=== PATIENT | male | born 1945 | race Caucasian/White ===

== ENCOUNTER → 2016-09-16 | Outpatient (CLI) | payer MEDICARE ==
[~2016-09-16] MED LIST: ACET500T76 PO; ALBU6.7H PO; ASCO250T2 PO; ASPI-515 PO; ATOR10TA9 PO; BISO10TA10 PO; CALC-141 PO; CARV6.252 PO; CEFD300C2 PO; DIAZ5TAB PO; DIGO125T PO; DIPH25CA61 PO; DOXY100T PO; ENAL5TAB PO; ENAL5TAB34 PO; FOLI-17 PO; FURO40TA6 PO; GABA100C8 PO; IBAN150T PO; LORA-446 PO; MAGN400T36 PO; MAGNESIUM PO; MULT-6 PO; MULTIVITAMIN PO; MYCO500T3 PO; NORT10CA PO; RANI150C PO; SIRO0.5T3 PO; SIRO1TAB PO; TACR0.5C4 PO; TRIA10.8 INH; WARF2TAB PO-COUM; WARF5TAB7 PO; WARF7.5T6 PO
[2016-09-16 12:47] LABS: HEMOGLOBIN 14.4 g/dL (13.7-18.0)
[2016-09-16 12:58] LABS: BLOOD UREA NITROGEN 32 mg/dL (7-18)
[2016-09-16 13:11] LABS: ASPARTATE AMINO TRANSFERASE 24 U/L (15-37)
== END | disposition home or self-care (01) ==
LOC: CFH 10:47
PROVIDERS: ATTEND Nurse Practitioner Family
DX: J18.9 Pneumonia, unspecified organism (principal); Z94.1 Heart transplant status; Z98.890 Other specified postprocedural states
CPT/HCPCS: 36415; 71020; 80053; 80162; 80195; 80197; 83880; 85025; 85610

== ENCOUNTER → 2016-10-10 | Outpatient (CLI) | payer MEDICARE ==
[~2016-10-10] MED LIST changes: -CEFD300C2 PO; +CEFD300C37 PO
== END | disposition home or self-care (01) ==
LOC: CFH 11:58
PROVIDERS: ATTEND Nurse Practitioner Family
DX: I80.01 Phlebitis and thrombophlebitis of superficial vessels of right lower extremity (principal); Z94.1 Heart transplant status
CPT/HCPCS: 36415; 85610

== ENCOUNTER → 2016-11-05 | Outpatient (CLI) | payer MEDICARE ==
[2016-11-05 13:04] LABS: BLOOD UREA NITROGEN 24 mg/dL (7-18)
== END | disposition home or self-care (01) ==
LOC: LAB 09:44
PROVIDERS: ATTEND Nurse Practitioner Family
DX: Z48.21 Encounter for aftercare following heart transplant (principal); I80.01 Phlebitis and thrombophlebitis of superficial vessels of right lower extremity; Z94.1 Heart transplant status
CPT/HCPCS: 36415; 80048; 80197; 85610

== ENCOUNTER → 2016-11-29 | Outpatient (CLI) | payer MEDICARE ==
[~2016-11-29] MED LIST changes: +ACET500T71 PO; -ACET500T76 PO; +GABA-826 PO; -GABA100C8 PO; +WARF7.5T PO
== END | disposition home or self-care (01) ==
LOC: LAB 11:21
PROVIDERS: ATTEND Nurse Practitioner Family
DX: I80.01 Phlebitis and thrombophlebitis of superficial vessels of right lower extremity (principal); Z94.1 Heart transplant status
CPT/HCPCS: 36415; 85610

== ENCOUNTER → 2016-12-11 | Outpatient (CLI) | payer MEDICARE | END | disposition home or self-care (01) | LOC: LAB 10:56 | PROVIDERS: ATTEND Nurse Practitioner Family | DX: I80.01 Phlebitis and thrombophlebitis of superficial vessels of right lower extremity (principal); Z94.1 Heart transplant status | CPT/HCPCS: 36415; 85610 ==

== ENCOUNTER → 2016-12-25 | Outpatient (CLI) | payer MEDICARE | END | disposition home or self-care (01) | LOC: CFH 12:15 | PROVIDERS: ATTEND Nurse Practitioner Family | DX: I80.01 Phlebitis and thrombophlebitis of superficial vessels of right lower extremity (principal); Z94.1 Heart transplant status | CPT/HCPCS: 36415; 85610 ==

== ENCOUNTER → 2017-01-09 | Outpatient (CLI) | payer MEDICARE | END | disposition home or self-care (01) | LOC: CFH 09:46 | PROVIDERS: ATTEND Nurse Practitioner Family | DX: I80.01 Phlebitis and thrombophlebitis of superficial vessels of right lower extremity (principal); Z94.1 Heart transplant status | CPT/HCPCS: 36415; 85610 ==

== ENCOUNTER → 2017-02-03 | Outpatient (CLI) | payer MEDICARE ==
[~2017-02-03] MED LIST changes: -ENAL5TAB34 PO; +ENAL5TAB70 PO
== END | disposition home or self-care (01) ==
LOC: CFH 10:14
PROVIDERS: ATTEND Nurse Practitioner Family
DX: I82.409 Acute embolism and thrombosis of unspecified deep veins of unspecified lower extremity (principal)
CPT/HCPCS: 36415; 85610

== ENCOUNTER → 2017-02-17 | Outpatient (CLI) | payer MEDICARE ==
[2017-02-17 12:40] LABS: HEMATOCRIT 43.9 % (39.2-51.8); HEMOGLOBIN 14.7 g/dL (13.7-18.0); WHITE BLOOD COUNT 5.4 x10^3/uL (3.4-10)
[2017-02-17 12:45] LABS: BLOOD UREA NITROGEN 23 mg/dL (7-18)
== END | disposition home or self-care (01) ==
LOC: LAB 11:33
PROVIDERS: ATTEND Nurse Practitioner Family
DX: Z48.21 Encounter for aftercare following heart transplant (principal); I80.01 Phlebitis and thrombophlebitis of superficial vessels of right lower extremity; Z94.1 Heart transplant status
CPT/HCPCS: 36415; 80048; 80195; 80197; 83735; 85025; 85610

== ENCOUNTER → 2017-02-28 | Outpatient (CLI) | payer MEDICARE | END | disposition home or self-care (01) | LOC: CFH 13:29 | PROVIDERS: ATTEND Nurse Practitioner Family | DX: I80.01 Phlebitis and thrombophlebitis of superficial vessels of right lower extremity (principal); Z94.1 Heart transplant status | CPT/HCPCS: 36415; 85610 ==

== ENCOUNTER → 2017-04-04 | Outpatient (CLI) | payer MEDICARE | END | disposition home or self-care (01) | LOC: LAB 09:51 | PROVIDERS: ATTEND Nurse Practitioner Family | DX: I80.01 Phlebitis and thrombophlebitis of superficial vessels of right lower extremity (principal); Z94.1 Heart transplant status | CPT/HCPCS: 36415; 85610 ==

== ENCOUNTER → 2017-05-14 | Outpatient (CLI) | payer MEDICARE | LOC: CFH 09:34 | PROVIDERS: ATTEND Internal Medicine Cardiovascular Disease | DX: I82.811 Embolism and thrombosis of superficial veins of right lower extremity (principal) | CPT/HCPCS: 36415; 85610 ==

== ENCOUNTER → 2017-06-30 | Outpatient (CLI) | payer MEDICARE ==
[2017-06-30 12:41] LABS: INTERNATIONAL NORMALIZED RATIO 1.92 (0.93-1.1); PROTHROMBIN TIME 19.7 Seconds (9.6-11.5)
== END | disposition home or self-care (01) ==
LOC: CFH 09:09
PROVIDERS: ATTEND Internal Medicine Cardiovascular Disease
DX: I80.01 Phlebitis and thrombophlebitis of superficial vessels of right lower extremity (principal)
CPT/HCPCS: 36415; 85610

== ENCOUNTER → 2017-08-13 | Outpatient (CLI) | payer MEDICARE ==
[~2017-08-13] MED LIST changes: +WARF-36 PO; -WARF5TAB7 PO
[2017-08-13 15:40] LABS: ALBUMIN 3.4 g/dL (3.4-5.0); ANION GAP 9 mmol/L (5-15); CALCIUM 8.4 mg/dL (8.5-10.1); CHLORIDE 105 mmol/L (98-107)
[2017-08-13 15:42] LABS: ALANINE AMINOTRANSFERASE 26 U/L (12-78); ALKALINE PHOSPHATASE 120 U/L (45-117); BILIRUBIN,TOTAL 0.6 mg/dL (0.2-1.0); CREATININE 1.53 mg/dL (0.7-1.3); TOTAL PROTEIN 6.8 g/dL (6.4-8.2)
[2017-08-13 15:52] LABS: INTERNATIONAL NORMALIZED RATIO 2.16 (0.93-1.1); PROTHROMBIN TIME 22.1 Seconds (9.6-11.5)
[2017-08-14 15:32] LABS: BASOPHILS # (AUTO) 0.04 x10^3/uL (0-0.1); BASOPHILS % (AUTO) 1 % (0-1); EOSINOPHILS # (AUTO) 0.53 x10^3/uL (0-0.4); EOSINOPHILS % (AUTO) 9 % (1-7); LYMPHOCYTES # (AUTO) 1.55 x10^3/uL (1-3.4); LYMPHOCYTES % (AUTO) 28 % (22-44); MD NO; MEAN CORPUSCULAR HEMOGLOBIN 28.9 pg (27.5-34.5); MEAN CORPUSCULAR HGB CONC 32.7 g/dL (33.2-36.2); MEAN CORPUSCULAR VOLUME 88.2 fL (81-97); MEAN PLATELET VOLUME 10.8 fL (7.4-10.4); MONOCYTES # (AUTO) 0.85 x10^3/uL (0.2-0.8); MONOCYTES % (AUTO) 15 % (2-9); NEUTROPHILS # (AUTO) 2.66 x10^3/uL (1.8-6.8); NEUTROPHILS % (AUTO) 47 % (42-75); PLATELET COUNT 134 x10^3/uL (130-400); RED BLOOD COUNT 4.61 x10^6/uL (4.38-5.82); RED CELL DISTRIBUTION WIDTH 13.8 % (9.4-14.8)
== END | disposition home or self-care (01) ==
LOC: CFH 11:19
PROVIDERS: ATTEND Internal Medicine Cardiovascular Disease
DX: Z01.818 Encounter for other preprocedural examination (principal); I80.01 Phlebitis and thrombophlebitis of superficial vessels of right lower extremity; Z94.1 Heart transplant status
CPT/HCPCS: 36415; 80053; 80195; 80197; 83735; 85025; 85610

== ENCOUNTER → 2017-10-31 | Outpatient (CLI) | payer MEDICARE ==
[~2017-10-31] MED LIST changes: +WARF7.5T46 PO; -WARF7.5T6 PO
[2017-10-31 16:00] LABS: INTERNATIONAL NORMALIZED RATIO 2.45 (0.93-1.1)
[2017-10-31 16:06] LABS: ANION GAP 7 mmol/L (5-15); CALCIUM 8.6 mg/dL (8.5-10.1); CHLORIDE 108 mmol/L (98-107)
[2017-10-31 16:12] LABS: CREATININE 1.48 mg/dL (0.7-1.3)
[2017-10-31 16:14] LABS: MEAN CORPUSCULAR HEMOGLOBIN 28.8 pg (27.5-34.5); MEAN CORPUSCULAR HGB CONC 32.7 g/dL (33.2-36.2); MEAN CORPUSCULAR VOLUME 88.1 fL (81-97); MEAN PLATELET VOLUME 10.3 fL (7.4-10.4); PLATELET COUNT 144 x10^3/uL (130-400); RED BLOOD COUNT 4.43 x10^6/uL (4.38-5.82); RED CELL DISTRIBUTION WIDTH 14.6 % (9.4-14.8)
[2017-10-31 16:47] LABS: BASOPHILS # (AUTO) 0.02 x10^3/uL (0-0.1); BASOPHILS % (AUTO) 0 % (0-1); EOSINOPHILS # (AUTO) 0.15 x10^3/uL (0-0.4); EOSINOPHILS % (AUTO) 3 % (1-7); LYMPHOCYTES # (AUTO) 1.01 x10^3/uL (1-3.4); LYMPHOCYTES % (AUTO) 17 % (22-44); MONOCYTES # (AUTO) 0.69 x10^3/uL (0.2-0.8); MONOCYTES % (AUTO) 12 % (2-9); NEUTROPHILS # (AUTO) 3.94 x10^3/uL (1.8-6.8); NEUTROPHILS % (AUTO) 68 % (42-75)
[2017-10-31 16:50] LABS: MD MORPH REVIEW ONLY
[2017-10-31 16:52] LABS: <PLATELET ESTIMATE> ADEQUATE; ECHINOCYTES 1+; LARGE PLATELETS 1+
[2017-10-31 16:53] LABS: OVALOCYTES 1+
== END ==
LOC: CFH 13:44
PROVIDERS: ATTEND Internal Medicine Cardiovascular Disease
DX: I10 Essential (primary) hypertension (principal); Z94.1 Heart transplant status
CPT/HCPCS: 36415; 80048; 80195; 80197; 83735; 83880; 85025; 85610

== ENCOUNTER → 2017-12-08 | Outpatient (CLI) | payer MEDICARE ==
[2017-12-08 15:55] LABS: PROTHROMBIN TIME 20.5 Seconds (9.6-11.5)
== END | disposition home or self-care (01) ==
LOC: CFH 12:28
PROVIDERS: ATTEND Internal Medicine Cardiovascular Disease
DX: I80.01 Phlebitis and thrombophlebitis of superficial vessels of right lower extremity (principal)
CPT/HCPCS: 36415; 85610

== ENCOUNTER → 2018-01-15 | Outpatient (CLI) | payer MEDICARE ==
[2018-01-15 13:11] LABS: INTERNATIONAL NORMALIZED RATIO 2.68 (0.93-1.1); PROTHROMBIN TIME 27.1 Seconds (9.6-11.5)
== END | disposition home or self-care (01) ==
LOC: CFH 12:15
PROVIDERS: ATTEND Nurse Practitioner Family
DX: J90 Pleural effusion, not elsewhere classified (principal); I10 Essential (primary) hypertension; Z94.1 Heart transplant status
CPT/HCPCS: 36415; 71046; 85610

== ENCOUNTER → 2018-02-10 | Outpatient (CLI) | payer MEDICARE | END | disposition home or self-care (01) | LOC: CFH 07:16 | PROVIDERS: ATTEND Internal Medicine Cardiovascular Disease | DX: I08.3 Combined rheumatic disorders of mitral, aortic and tricuspid valves (principal); Z94.1 Heart transplant status; I10 Essential (primary) hypertension; E78.5 Hyperlipidemia, unspecified; Z87.891 Personal history of nicotine dependence | CPT/HCPCS: 93306 ==

== ENCOUNTER → 2018-02-26 | Outpatient (CLI) | payer MEDICARE ==
[2018-02-26 15:58] LABS: INTERNATIONAL NORMALIZED RATIO 1.96 (0.93-1.1); PROTHROMBIN TIME 20.1 Seconds (9.6-11.5)
== END | disposition home or self-care (01) ==
LOC: CFH 12:45
PROVIDERS: ATTEND Internal Medicine Cardiovascular Disease
DX: I80.01 Phlebitis and thrombophlebitis of superficial vessels of right lower extremity (principal); I50.9 Heart failure, unspecified; Z87.891 Personal history of nicotine dependence
CPT/HCPCS: 36415; 85610

== ENCOUNTER → 2018-03-18 | Outpatient (CLI) | payer MEDICARE ==
[2018-03-18 16:01] LABS: INTERNATIONAL NORMALIZED RATIO 2.79 (0.93-1.1); PROTHROMBIN TIME 28.2 Seconds (9.6-11.5)
== END | disposition home or self-care (01) ==
LOC: CFH 10:52
PROVIDERS: ATTEND Internal Medicine Cardiovascular Disease
DX: D15.1 Benign neoplasm of heart (principal); I26.99 Other pulmonary embolism without acute cor pulmonale; I48.92 Unspecified atrial flutter; Z94.1 Heart transplant status
CPT/HCPCS: 36415; 71046; 85610

== ENCOUNTER → 2018-05-12 | Outpatient (CLI) | payer MEDICARE ==
[2018-05-12 12:42] LABS: INTERNATIONAL NORMALIZED RATIO 3.72 (0.93-1.1); PROTHROMBIN TIME 37.5 Seconds (9.6-11.5)
[2018-05-12 12:58] LABS: ANION GAP 9 mmol/L (5-15); CALCIUM 7.9 mg/dL (8.5-10.1); CHLORIDE 108 mmol/L (98-107); CREATININE 1.65 mg/dL (0.7-1.3)
== END | disposition home or self-care (01) ==
LOC: CFH 09:10
PROVIDERS: ATTEND Internal Medicine Cardiovascular Disease
DX: Z51.81 Encounter for therapeutic drug level monitoring (principal); Z48.21 Encounter for aftercare following heart transplant; D89.9 Disorder involving the immune mechanism, unspecified; Z79.899 Other long term (current) drug therapy; Z94.1 Heart transplant status
CPT/HCPCS: 36415; 80048; 80195; 80197; 85610

== ENCOUNTER → 2018-05-27 | Outpatient (CLI) | payer MEDICARE ==
[2018-05-27 12:41] LABS: ANION GAP 6 mmol/L (5-15); CALCIUM 8.2 mg/dL (8.5-10.1); CHLORIDE 107 mmol/L (98-107)
[2018-05-27 12:45] LABS: CREATININE 1.75 mg/dL (0.7-1.3)
[2018-05-27 12:47] LABS: INTERNATIONAL NORMALIZED RATIO 1.69 (0.93-1.1); PROTHROMBIN TIME 17.6 Seconds (9.6-11.5)
[2018-05-27 13:33] LABS: MEAN CORPUSCULAR HEMOGLOBIN 28.2 pg (27.5-34.5); MEAN CORPUSCULAR HGB CONC 32.9 g/dL (33.2-36.2); MEAN CORPUSCULAR VOLUME 85.8 fL (81-97); MEAN PLATELET VOLUME 10.5 fL (7.4-10.4); PLATELET COUNT 128 x10^3/uL (130-400); RED BLOOD COUNT 4.05 x10^6/uL (4.38-5.82); RED CELL DISTRIBUTION WIDTH 14.8 % (9.4-14.8)
[2018-05-27 13:34] LABS: MD YES
[2018-05-27 13:36] LABS: BAND#(MANUAL) 0.05 x10^3/uL; BANDS%(MANUAL) 1 % (0-7); BASOS#(MANUAL) 0.05 x10^3/uL (0-0.1); BASOS% (MANUAL) 1 % (0-1); EOS% (MANUAL) 2 % (1-7); LYMPH#(MANUAL) 0.62 x10^3/uL (1-3.4); LYMPHS% (MANUAL) 13 % (22-44); MONOS#(MANUAL) 0.58 x10^3/uL (0.3-2.7); MONOS% (MANUAL) 12 % (2-9); MYELOCYTES# (MANUAL) 0.05 x10^3/uL (0-0); MYELOCYTES% (MANUAL) 1 % (0-0); SEG#(MANUAL) 3.36 x10^3/uL (1.8-6.8); SEGS% (MANUAL) 70 % (42-75)
[2018-05-27 13:37] LABS: OVALOCYTES 1+
[2018-05-27 13:38] LABS: <PLATELET ESTIMATE> DECREASED; ECHINOCYTES 1+; LARGE PLATELETS 1+
== END | disposition home or self-care (01) ==
LOC: CFH 11:07
PROVIDERS: ATTEND Internal Medicine Cardiovascular Disease
DX: Z51.81 Encounter for therapeutic drug level monitoring (principal); I80.01 Phlebitis and thrombophlebitis of superficial vessels of right lower extremity; D89.9 Disorder involving the immune mechanism, unspecified; Z94.1 Heart transplant status; Z79.899 Other long term (current) drug therapy
CPT/HCPCS: 36415; 80048; 80195; 80197; 83735; 85025; 85610

== ENCOUNTER → 2018-06-29 | Outpatient (CLI) | payer MEDICARE ==
[2018-06-29 12:56] LABS: ANION GAP 9 mmol/L (5-15); CALCIUM 9.1 mg/dL (8.5-10.1); CHLORIDE 107 mmol/L (98-107); CREATININE 1.97 mg/dL (0.7-1.3)
[2018-06-29 13:00] LABS: INTERNATIONAL NORMALIZED RATIO 6.06 (0.93-1.1); PROTHROMBIN TIME 59.9 Seconds (9.6-11.5)
== END | disposition home or self-care (01) ==
LOC: CFH 08:26
PROVIDERS: ATTEND Nurse Practitioner Family
DX: Z51.81 Encounter for therapeutic drug level monitoring (principal); I80.01 Phlebitis and thrombophlebitis of superficial vessels of right lower extremity; D89.9 Disorder involving the immune mechanism, unspecified; Z79.899 Other long term (current) drug therapy; Z94.1 Heart transplant status
CPT/HCPCS: 36415; 80048; 80195; 80197; 85610

== ENCOUNTER → 2018-07-07 | Outpatient (CLI) | payer MEDICARE ==
[2018-07-07 16:04] LABS: INTERNATIONAL NORMALIZED RATIO 1.48 (0.93-1.1); PROTHROMBIN TIME 15.5 Seconds (9.6-11.5)
== END | disposition home or self-care (01) ==
LOC: CFH 12:08
PROVIDERS: ATTEND Internal Medicine Cardiovascular Disease
DX: I80.01 Phlebitis and thrombophlebitis of superficial vessels of right lower extremity (principal)
CPT/HCPCS: 36415; 85610

== ENCOUNTER → 2018-07-23 | Outpatient (CLI) | payer MEDICARE ==
[2018-07-23 12:53] LABS: INTERNATIONAL NORMALIZED RATIO 1.89 (0.93-1.1); PROTHROMBIN TIME 19.5 Seconds (9.6-11.5)
[2018-07-23 12:56] LABS: ANION GAP 5 mmol/L (5-15); CALCIUM 8.2 mg/dL (8.5-10.1); CHLORIDE 108 mmol/L (98-107); CREATININE 1.87 mg/dL (0.7-1.3)
== END | disposition home or self-care (01) ==
LOC: CFH 10:45
PROVIDERS: ATTEND Nurse Practitioner Family
DX: Z48.21 Encounter for aftercare following heart transplant (principal); I80.01 Phlebitis and thrombophlebitis of superficial vessels of right lower extremity; D89.9 Disorder involving the immune mechanism, unspecified; Z79.899 Other long term (current) drug therapy; Z94.1 Heart transplant status
CPT/HCPCS: 36415; 80048; 80195; 80197; 85610

== ENCOUNTER → 2018-08-05 | Outpatient (CLI) | payer MEDICARE ==
[2018-08-05 12:49] LABS: INTERNATIONAL NORMALIZED RATIO 2.28 (0.93-1.1); PROTHROMBIN TIME 23.2 Seconds (9.6-11.5)
[2018-08-05 13:54] LABS: ANION GAP 3 mmol/L (5-15); CALCIUM 8.2 mg/dL (8.5-10.1); CHLORIDE 109 mmol/L (98-107); CREATININE 1.77 mg/dL (0.7-1.3)
[2018-08-05 14:37] LABS: MEAN CORPUSCULAR HEMOGLOBIN 28.4 pg (27.5-34.5); MEAN CORPUSCULAR HGB CONC 32.8 g/dL (33.2-36.2); MEAN CORPUSCULAR VOLUME 86.8 fL (81-97); PLATELET COUNT 86 x10^3/uL (130-400); RED BLOOD COUNT 4.46 x10^6/uL (4.38-5.82); RED CELL DISTRIBUTION WIDTH 15.3 % (9.4-14.8)
[2018-08-05 14:38] LABS: BASOPHILS % (AUTO) 3 % (0-1); EOSINOPHILS # (AUTO) 0.23 x10^3/uL (0-0.4); EOSINOPHILS % (AUTO) 6 % (1-7); LYMPHOCYTES # (AUTO) 1.11 x10^3/uL (1-3.4); LYMPHOCYTES % (AUTO) 27 % (22-44); MD MORPH REVIEW ONLY; MONOCYTES # (AUTO) 0.53 x10^3/uL (0.2-0.8); MONOCYTES % (AUTO) 13 % (2-9); NEUTROPHILS # (AUTO) 2.14 x10^3/uL (1.8-6.8); NEUTROPHILS % (AUTO) 52 % (42-75)
[2018-08-05 14:41] LABS: <PLATELET ESTIMATE> DECREASED; ANISOCYTOSIS 1+; ECHINOCYTES 1+; LARGE PLATELETS 1+; OVALOCYTES 1+
== END | disposition home or self-care (01) ==
LOC: CFH 09:58
PROVIDERS: ATTEND Nurse Practitioner Family
DX: I82.811 Embolism and thrombosis of superficial veins of right lower extremity (principal); E78.5 Hyperlipidemia, unspecified; D89.9 Disorder involving the immune mechanism, unspecified; Z94.1 Heart transplant status; Z48.21 Encounter for aftercare following heart transplant; Z79.899 Other long term (current) drug therapy; Z51.81 Encounter for therapeutic drug level monitoring
CPT/HCPCS: 36415; 80048; 80195; 80197; 85025; 85610; 85730

== ENCOUNTER 2018-09-13 13:54 | Emergency (ER) | payer MEDICARE ==
[~2018-09-13] VITALS: Ht 172.7 cm; Wt 70.5 kg
[~2018-09-13 13:54] MED LIST changes: -IBAN150T PO; +IBAN150T15 PO
--- NOTE | 2018-09-13 14:13 | NUR ---
Delia tee in ED - 09/13/18 at 1439 by ANN BACITRACIN AND BANDAID APPLIED TO R EARLOBE.
[2018-09-13] MEDS ORDERED: SODIUM CHLORIDE FLUSH 10ML SYR IVF ONE (14:30)
[2018-09-13] MEDS ORDERED: ONDANSETRON 2MG/ML, 2ML IVPush ONE (14:30)
[2018-09-13] MEDS ORDERED: HYDROmorphone 1 MG/ML, 1ML VIAL ONE (14:31)
[2018-09-13] MEDS: HYDROmorphone 2 MG/ML, 1ML IVPush PRN ×2 (14:34→14:58)
--- NOTE | 2018-09-13 14:39 | NUR ---
IV PLACED, LABS DRAWN WITH START. PT MEDICATED WITH DILAUDID FOR SEVERE ABD PAIN. PT WITH IMMEDIATE DECREASE IN PAIN, COMFORTABLE AT THIS TIME. BP CUFF, PULSE OX IN PLACE. WARM BLANKET PROVIDED, CALL LIGHT WITHIN REACH.
[2018-09-13 14:49] LABS: INTERNATIONAL NORMALIZED RATIO 1.69 (0.93-1.1); PROTHROMBIN TIME 17.4 Seconds (9.6-11.5)
[2018-09-13 14:50] LABS: ALBUMIN 3.8 g/dL (3.4-5.0); ANION GAP 5 mmol/L (5-15); CALCIUM 8.7 mg/dL (8.5-10.1); CHLORIDE 111 mmol/L (98-107); CREATININE 1.78 mg/dL (0.7-1.3)
--- NOTE | 2018-09-13 15:05 | NUR ---
US AT BS.
--- NOTE | 2018-09-13 15:15 | NUR ---
PT PROVIDED PILLOW, AWAITING US READ. PT STATES PAIN GONE AT THIS TIME.
[2018-09-13 15:16] LABS: MEAN CORPUSCULAR HEMOGLOBIN 27.5 pg (27.5-34.5); MEAN CORPUSCULAR HGB CONC 31.6 g/dL (33.2-36.2); MEAN CORPUSCULAR VOLUME 86.9 fL (81-97); MEAN PLATELET VOLUME 11.4 fL (7.4-10.4); PLATELET COUNT 107 x10^3/uL (130-400); RED BLOOD COUNT 4.59 x10^6/uL (4.38-5.82); RED CELL DISTRIBUTION WIDTH 14.3 % (9.4-14.8)
[2018-09-13 15:18] LABS: MD YES
[2018-09-13 15:25] LABS: EOS#(MANUAL) 0.23 x10^3/uL (0.0-0.4); EOS% (MANUAL) 5 % (1-7); LYMPH#(MANUAL) 0.68 x10^3/uL (1-3.4); LYMPHS% (MANUAL) 15 % (22-44); MONOS#(MANUAL) 0.59 x10^3/uL (0.3-2.7); MONOS% (MANUAL) 13 % (2-9); REACTIVE LYMPHS # (MANUAL) 0.23 x10^3/uL (0-0); REACTIVE LYMPHS % (MANUAL) 5 % (0-0); SEG#(MANUAL) 2.79 x10^3/uL (1.8-6.8); SEGS% (MANUAL) 62 % (42-75)
[2018-09-13 15:26] LABS: <PLATELET ESTIMATE> DECREASED; ANISOCYTOSIS 1+; ECHINOCYTES 1+; LARGE PLATELETS 1+; OVALOCYTES 1+
--- NOTE | 2018-09-13 15:39 | NUR ---
ALL RESULTS BACK, PT FOR RECHECK.
[2018-09-13 16:11] VITALS: BP 138/96
== END 2018-09-13 16:14 | disposition home or self-care (01) ==
LOC: ED 14:20
DX: K42.9 Umbilical hernia without obstruction or gangrene (principal); I10 Essential (primary) hypertension
CPT/HCPCS: 36415; 76700; 80048; 82040; 83605; 85025; 85610; 85730; 96374; 99284; J1170

== ENCOUNTER 2018-09-14 07:08 | Emergency (ER) | payer MEDICARE ==
[~2018-09-14] VITALS: Ht 172.7 cm; Wt 70.0 kg
[2018-09-14] MEDS ORDERED: HYDROmorphone 1 MG/ML, 1ML VIAL ONE (07:57)
[2018-09-14] MEDS ORDERED: HYDROmorphone 2 MG/ML, 1ML IVPush PRN (08:00)
[2018-09-14] MEDS ORDERED: SODIUM CHLORIDE FLUSH 10ML SYR IVF ONE (08:00)
--- NOTE | 2018-09-14 08:08 | NUR ---
pt upright on gurney awake & calm, responds approp to staff, NAD, comfort measures provided, call light within reach.
[2018-09-14 09:06] VITALS: BP 93/66
--- NOTE | 2018-09-14 09:06 | NUR ---
pt laying on gurney with eyes closed, more comfortable after pain med, responds approp to staff, NAD, comfort measures provided, call light within reach.
--- NOTE | 2018-09-14 09:29 | NUR ---
Patient given discharge instructions and they have confirmed that they understand the instructions. Patient ambulatory with steady gait.
== END 2018-09-14 09:52 | disposition home or self-care (01) ==
LOC: ED 07:38
DX: K42.9 Umbilical hernia without obstruction or gangrene (principal); E78.00 Pure hypercholesterolemia, unspecified; J45.909 Unspecified asthma, uncomplicated; E78.5 Hyperlipidemia, unspecified; I25.10 Atherosclerotic heart disease of native coronary artery without angina pectoris; G89.29 Other chronic pain; I11.9 Hypertensive heart disease without heart failure; M19.90 Unspecified osteoarthritis, unspecified site; Z86.73 Personal history of transient ischemic attack (TIA), and cerebral infarction without residual deficits; Z95.1 Presence of aortocoronary bypass graft; Z86.718 Personal history of other venous thrombosis and embolism
CPT/HCPCS: 96374; 99283; J1170

== ENCOUNTER 2018-09-19 11:39 | Observation (INO) | payer MEDICARE ==
[~2018-09-19] VITALS: Ht 172.7 cm; Wt 72.9 kg
--- NOTE | 2018-09-19 12:07 | NUR ---
PT AMBULATORY TO ROOM T1 W/ C/O DIZZINESS AND FEELINGS THAT IF HE ATTEMPTED TO GO BACK TO SLEEP HE WOULD NOT WAKE UP. PT STATES HE HAD THIS HAPPEN BEFORE AT ONE TIME. PT STATES HE HAD A HEART TRANSPLANT. PT ALSO NOTED TO HAVE 3+ PITTING EDEMA TO BLE. PT STATES HE THINKS HE HAS CHF AND IS ON LASIX BUT IT HASN'T BEEN DIAGNOSED. DENIES CP/SOB. PT RESTING ON GURNEY. NADN. VSS. MONITORS APPLIED. WARM BLANKET PROVIDED. [employer] STUDENT AT BEDSIDE.
[2018-09-19] MEDS ORDERED: SODIUM CHLORIDE FLUSH 10ML SYR IVF ONE (12:30)
[2018-09-19 12:45] LABS: MICROSCOPIC NOT IND
[2018-09-19 12:55] LABS: CULTURE INDICATED? NO
[2018-09-19 12:58] LABS: INTERNATIONAL NORMALIZED RATIO 3.06 (0.93-1.1); PROTHROMBIN TIME 30.8 Seconds (9.6-11.5)
[2018-09-19 12:59] LABS: ALANINE AMINOTRANSFERASE 18 U/L (12-78); ALBUMIN 3.5 g/dL (3.4-5.0); ANION GAP 6 mmol/L (5-15); CALCIUM 8.5 mg/dL (8.5-10.1); CHLORIDE 103 mmol/L (98-107); CREATININE 2.36 mg/dL (0.7-1.3)
[2018-09-19 13:05] LABS: ALKALINE PHOSPHATASE 124 U/L (45-117); BILIRUBIN,TOTAL 0.6 mg/dL (0.2-1.0); TOTAL PROTEIN 6.6 g/dL (6.4-8.2)
[2018-09-19 13:15] LABS: MEAN CORPUSCULAR HEMOGLOBIN 28.6 pg (27.5-34.5); MEAN CORPUSCULAR HGB CONC 33.3 g/dL (33.2-36.2); MEAN PLATELET VOLUME 11.5 fL (7.4-10.4); PLATELET COUNT 107 x10^3/uL (130-400); RED BLOOD COUNT 4.04 x10^6/uL (4.38-5.82); RED CELL DISTRIBUTION WIDTH 14.3 % (9.4-14.8)
[2018-09-19 13:17] LABS: BASOPHILS # (AUTO) 0.02 x10^3/uL (0-0.1); BASOPHILS % (AUTO) 1 % (0-1); EOSINOPHILS # (AUTO) 0.13 x10^3/uL (0-0.4); EOSINOPHILS % (AUTO) 3 % (1-7); LYMPHOCYTES # (AUTO) 0.71 x10^3/uL (1-3.4); LYMPHOCYTES % (AUTO) 16 % (22-44); MD MORPH REVIEW ONLY; MONOCYTES # (AUTO) 0.48 x10^3/uL (0.2-0.8); MONOCYTES % (AUTO) 11 % (2-9); NEUTROPHILS # (AUTO) 3.02 x10^3/uL (1.8-6.8); NEUTROPHILS % (AUTO) 69 % (42-75)
[2018-09-19 13:19] LABS: <PLATELET ESTIMATE> DECREASED; ANISOCYTOSIS 1+; ECHINOCYTES 1+; LARGE PLATELETS 1+; OVALOCYTES 1+
--- NOTE | 2018-09-19 13:29 | NUR ---
PT CHART REVIEWED AND PLACED FOR RECHECK.
[2018-09-19] MEDS ORDERED: SODIUM CHLORIDE FLUSH 10ML SYR IVF PRN (14:00)
--- NOTE | 2018-09-19 14:02 | NUR ---
Joshua RN note: This RN answered pt's call light. Pt given water and lights in room dimmed per pt request. Pt denies other needs.
--- NOTE | 2018-09-19 14:07 | NUR ---
PT RESTING ON SUKUMAR. VSS. AWARE OF POC FOR ADMIT.
--- NOTE | 2018-09-19 14:49 | NUR ---
[facility] AT BEDSIDE.
--- NOTE | 2018-09-19 15:05 | NUR ---
Break RN note: Pt resting in bed, NADN, denies needs.
[2018-09-19] MEDS ORDERED: SODIUM CHLORIDE 0.9% 1,000 ML IV SCH (15:09)
--- NOTE | 2018-09-19 15:18 | NUR ---
Break RN note: Report called to [facility] QUICK on card tele. Floor ready for pt transport.
[2018-09-19] MEDS ORDERED: DEXTROSE 4 GM TAB.CHEW PO PRN (15:30)
[2018-09-19] MEDS ORDERED: GLUCAGON 1 MG IM PRN (15:30)
[2018-09-19] MEDS ORDERED: hydrALAzine 20 MG/ML, 1ML IVPush PRN (15:30)
[2018-09-19] MEDS ORDERED: ONDANSETRON 2MG/ML, 2ML IVPush PRN (15:30)
[2018-09-19] MEDS ORDERED: DEXTROSE 50%, 50ML SYRINGE IVPush PRN (15:30)
[2018-09-19] MEDS ORDERED: LABETALOL 5 MG/ML SYRINGE IVPush PRN (15:30)
[2018-09-19] MEDS ORDERED: ACETAMINOPHEN 325 MG TABLET PO PRN (15:30)
[2018-09-19] MEDS ORDERED: DOCUSATE 100 MG CAPSULE PO PRN (15:30)
[2018-09-19] MEDS ORDERED: ONDANSETRON ODT 4 MG PO PRN (15:30)
[2018-09-19] MEDS ORDERED: POLYETHYLENE GLYCOL 17 GM PACKET PO PRN (15:30)
[2018-09-19] MEDS ORDERED: BISACODYL 10 MG SUPP PR PRN (15:30)
[2018-09-19] MEDS: INSULIN LISPRO 100 UNITS/ML, PEN SQ-INSULIN SCH ×2 (16:00→20:31)
[2018-09-19 16:46] VITALS: BP_SYST 140; BP_SYST 143; BP_SYST 150; BP_DIAS 80; BP_DIAS 95; BP_DIAS 98
[2018-09-19] MEDS: CARVEDILOL 12.5 MG TABLET PO SCH (17:37)
[2018-09-19] MEDS ORDERED: WARFARIN 2 MG TABLET PO-COUM ONE (18:00)
[2018-09-19 18:26] LABS: TROPONIN I 0.016 ng/mL (0.000-0.045)
[2018-09-19 19:14] VITALS: BP 125/94
[2018-09-19] MEDS: SODIUM CHLORIDE FLUSH 10ML SYR IVF SCH (20:30)
[2018-09-19] MEDS ORDERED: ALBUTEROL SULFATE 2.5 MG/3 ML NPPB SCH (21:00)
[2018-09-19] MEDS ORDERED: ATORVASTATIN 10 MG TABLET PO SCH (21:00)
[2018-09-19] MEDS ORDERED: NORTRIPTYLINE 10 MG CAPSULE PO SCH (21:00)
[2018-09-19 22:28] LABS: TROPONIN I < 0.015 ng/mL (0.000-0.045)
[2018-09-19] MEDS: HYDROcodone/APAP 5/325 TABLET PO PRN (23:18)
[2018-09-20 01:03] VITALS: BP 110/72
[2018-09-20] MEDS ORDERED: SIMETHICONE 125 MG CHEW TAB PO PRN (01:30)
[2018-09-20] MEDS: HYDROcodone/APAP 5/325 TABLET PO PRN ×2 (02:56→08:09)
[2018-09-20 05:07] LABS: ALANINE AMINOTRANSFERASE 23 U/L (12-78); ALBUMIN 3.4 g/dL (3.4-5.0); ANION GAP 7 mmol/L (5-15); CALCIUM 8.2 mg/dL (8.5-10.1); CHLORIDE 108 mmol/L (98-107)
[2018-09-20 05:08] LABS: INTERNATIONAL NORMALIZED RATIO 2.51 (0.93-1.1); PROTHROMBIN TIME 25.4 Seconds (9.6-11.5)
[2018-09-20 05:18] LABS: ALKALINE PHOSPHATASE 121 U/L (45-117); BILIRUBIN,TOTAL 0.7 mg/dL (0.2-1.0); CHOL/HDL RATIO 3.1; CHOLESTEROL, TOTAL 116 mg/dL (140-239); CREATININE 2.14 mg/dL (0.7-1.3); HDL CHOL % 32 % (26-37); HDL CHOLESTEROL (DIRECT) 37 mg/dL (40-60); LDL CHOLESTEROL,CALCULATED 42 mg/dL (54-169); LDL/HDL RATIO 1.1 (0.5-3.0); TOTAL PROTEIN 6.3 g/dL (6.4-8.2); TRIGLYCERIDES 185 mg/dL (50-200); VLDL CHOLESTEROL 37 mg/dL (0-25)
[2018-09-20] MEDS: CARVEDILOL 12.5 MG TABLET PO SCH (05:40)
[2018-09-20] MEDS ORDERED: LEVOTHYROXINE 50 MCG TABLET PO SCH (06:00)
[2018-09-20 06:14] LABS: BASOPHILS # (AUTO) 0.01 x10^3/uL (0-0.1); BASOPHILS % (AUTO) 0 % (0-1); EOSINOPHILS % (AUTO) 3 % (1-7); LYMPHOCYTES # (AUTO) 0.88 x10^3/uL (1-3.4); LYMPHOCYTES % (AUTO) 21 % (22-44); MD SCAN; MEAN CORPUSCULAR HEMOGLOBIN 28.2 pg (27.5-34.5); MEAN CORPUSCULAR HGB CONC 32.7 g/dL (33.2-36.2); MEAN CORPUSCULAR VOLUME 86.3 fL (81-97); MEAN PLATELET VOLUME 11.6 fL (7.4-10.4); MONOCYTES # (AUTO) 0.54 x10^3/uL (0.2-0.8); MONOCYTES % (AUTO) 13 % (2-9); NEUTROPHILS # (AUTO) 2.67 x10^3/uL (1.8-6.8); NEUTROPHILS % (AUTO) 64 % (42-75); PLATELET COUNT 101 x10^3/uL (130-400); RED BLOOD COUNT 4.06 x10^6/uL (4.38-5.82); RED CELL DISTRIBUTION WIDTH 14.4 % (9.4-14.8)
[2018-09-20] MEDS: INSULIN LISPRO 100 UNITS/ML, PEN SQ-INSULIN SCH (07:00)
[2018-09-20 08:00] VITALS: BP 112/62
[2018-09-20] MEDS: SODIUM CHLORIDE FLUSH 10ML SYR IVF SCH (08:10)
[2018-09-20] MEDS ORDERED: ENAL5TAB70 PO (08:52)
[2018-09-20] MEDS ORDERED: CLOP75TA PO (08:52)
[2018-09-20] MEDS ORDERED: LEVO50TA PO (08:52)
[2018-09-20] MEDS ORDERED: ATOR10TA9 PO (08:52)
[2018-09-20] MEDS ORDERED: CLOPIDOGREL 75 MG TABLET PO SCH (09:00)
[2018-09-20] MEDS ORDERED: ASPIRIN 81 MG TABLET EC PO SCH (09:00)
[2018-09-20] MEDS ORDERED: SIROLIMUS 1 MG TABLET PO SCH (09:00)
[2018-09-20] MEDS ORDERED: TACROLIMUS 0.5 MG CAPSULE PO SCH (09:00)
[2018-09-20] MEDS ORDERED: MULTIVITAMIN 1 TABLET PO SCH (09:00)
[2018-09-20] MEDS ORDERED: GUAIFENESIN 200 MG TABLET PO SCH (11:00)
[2018-09-20] MEDS ORDERED: WARFARIN 5 MG TABLET PO-COUM ONE (18:00)
== END 2018-09-20 11:32 | disposition home or self-care (01) ==
LOC: ED 12:27 → EDIP 13:50 → INTOOBSV 13:50 → 5SO 16:12
PROVIDERS: ADMIT Hospitalist; ATTEND Hospitalist
DX: R42 Dizziness and giddiness (principal); F41.9 Anxiety disorder, unspecified; I10 Essential (primary) hypertension; I48.91 Unspecified atrial fibrillation; I25.10 Atherosclerotic heart disease of native coronary artery without angina pectoris; N17.9 Acute kidney failure, unspecified; D64.9 Anemia, unspecified; D69.6 Thrombocytopenia, unspecified; C44.90 Unspecified malignant neoplasm of skin, unspecified; E03.9 Hypothyroidism, unspecified; E11.22 Type 2 diabetes mellitus with diabetic chronic kidney disease; E78.5 Hyperlipidemia, unspecified; I12.9 Hypertensive chronic kidney disease with stage 1 through stage 4 chronic kidney disease, or unspecified chronic kidney disease; I25.2 Old myocardial infarction; N18.3 Chronic kidney disease, stage 3 (moderate); I25.5 Ischemic cardiomyopathy; I45.10 Unspecified right bundle-branch block; Z82.49 Family history of ischemic heart disease and other diseases of the circulatory system; Z85.828 Personal history of other malignant neoplasm of skin; Z86.711 Personal history of pulmonary embolism; Z86.718 Personal history of other venous thrombosis and embolism; Z87.891 Personal history of nicotine dependence; Z95.1 Presence of aortocoronary bypass graft; Z95.5 Presence of coronary angioplasty implant and graft; Z79.01 Long term (current) use of anticoagulants; K42.9 Umbilical hernia without obstruction or gangrene
CPT/HCPCS: 36415; 71045; 80053; 80061; 80197; 81003; 82962; 83690; 83735; 83880; 84100; 84145; 84436; 84443; 84484; 85025; 85610; 85730; 93005; 96360; 96361; 99284; G0378; J7030; J7507; J7517; J7520